=== PATIENT | male | born 1995 | race American Indian/Alaskan Native ===

== ENCOUNTER 2019-10-01 02:16 | Emergency (ER) | payer SELFPAY ==
[2019-10-01 02:35] VITALS: BP 111/76
[2019-10-01] MEDS ORDERED: predniSONE 20 MG TAB PO ONE (03:44)
[2019-10-01] MEDS ORDERED: IBUPROFEN 600 MG TAB PO ONE (03:44)
[2019-10-01] MEDS ORDERED: ACETAMINOPHEN 500 MG TAB PO ONE (03:44)
--- NOTE | 2019-10-01 04:10 | XRay Report ---
LEFT FOOT 3 VIEWS INDICATION / CLINICAL INFORMATION: Left foot pain/injury. COMPARISON: None available. FINDINGS: BONES and JOINT(S): No acute fracture or subluxation. No significant arthritis. SOFT TISSUES: No significant abnormality. ADDITIONAL FINDINGS: None. IMPRESSION: 1. No acute findings. Signer Name: Félix Stoner MD Signed: 10/01/2019 4:06 AM Workstation Name: [id number]
--- NOTE | 2019-10-01 04:28 | Emergency Department Report ---
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 Patient states that apart from playing basketball that he plays multiple times a day he does not get engage in any other physically straining activity. Patient states that the last time he played basketball was over 12 hours ago. Patient states that the pain in the left foot got worse in the last 6 hours such that he has not been able to sleep because of severe pain. Patient also states that the pain is worse with ambulation or active range of motion or palpation of the left foot. Patient denies fall, traumatic injury, heavy lifting, low back pain, fever, chills, numbness and tingling or weakness of left foot, chest pain or shortness of breath. MD Complaint: extremity pain (left plantar foot), joint paint (left plantar foot pain; painful left great toe on plantar side) -: Sudden, hour(s) (12) Location: left, lower extremity (left plantar foot), toe (left great toe) History of Same: No -: Yes arthralgia, No fever, No associated dyspnea, No associated chest pain Radiation: none Severity scale (0 -10): 5 Quality: aching, sharp, constant Consistency: constant Improves with: nothing Worsens with: weight bearing, walking, exertion, palpation Associated Symptoms: denies other symptoms, arthralgias. denies: chest pain, shortness of breath, myalgias, rash, other - Related Data Previous Rx's Medication Instructions Recorded Last Taken Type Naproxen 500 mg PO Q12H PRN #24 tablet 10/01/19 Unknown Rx predniSONE [Deltasone] 40 mg PO QDAY #10 tab 10/01/19 Unknown Rx Allergies Allergy/AdvReac Type Severity Reaction Status Date / Time guaifenesin [From Robitussin] Allergy Unknown Verified 10/01/19 02:32 ED Review of Systems ROS: Stated complaint: LT FOOT PAIN Other details as noted in HPI Constitutional: denies: chills, fever Eyes: denies: eye pain, eye discharge, vision change ENT: denies: ear pain, throat pain Respiratory: denies: cough, shortness of breath, wheezing Cardiovascular: denies: chest pain, palpitations Endocrine: no symptoms reported Gastrointestinal: denies: abdominal pain, nausea, diarrhea Genitourinary: denies: urgency, dysuria Musculoskeletal: arthralgia (Left foot pain), other (Left great toe pain). denies: back pain, joint swelling Skin: denies: rash, lesions Neurological: denies: headache, weakness, paresthesias Psychiatric: denies: anxiety, depression Hematological/Lymphatic: denies: easy bleeding, easy bruising ED Past Medical Hx - Past Medical History Previous Medical History?: No - Surgical History Past Surgical History?: No - Social History Smoking Status: Never Smoker Substance Use Type: None - Medications Home Medications: Home Medications Medication Instructions Recorded Confirmed Last Taken Type Naproxen 500 mg PO Q12H PRN #24 tablet 10/01/19 Unknown Rx predniSONE [Deltasone] 40 mg PO QDAY #10 tab 10/01/19 Unknown Rx ED Physical Exam - General Limitations: Physical Limitation General appearance: alert, in no apparent distress - Head Head exam: Present: atraumatic, normocephalic, normal inspection - Eye Eye exam: Present: normal appearance, PERRL, EOMI Pupils: Present: normal accommodation - ENT ENT exam: Present: normal exam, normal orophraynx, mucous membranes moist, TM's normal bilaterally, normal external ear exam - Neck Neck exam: Present: normal inspection, full ROM. Absent: tenderness, lymphadenopathy - Respiratory Respiratory exam: Present: normal lung sounds bilaterally. Absent: respiratory distress, wheezes, rales, rhonchi, chest wall tenderness, accessory muscle use, decreased breath sounds, prolonged expiratory - Cardiovascular Cardiovascular Exam: Present: regular rate, normal rhythm, normal heart sounds. Absent: systolic murmur, diastolic murmur, rubs, gallop - GI/Abdominal GI/Abdominal exam: Present: soft, normal bowel sounds. Absent: tenderness, guarding, rebound, hyperactive bowel sounds, hypoactive bowel sounds, organomegaly - Extremities Exam Extremities exam: Present: normal inspection, full ROM, tenderness (Palpable left plantar foot tenderness at the arch of the foot; palpable left great toe tenderness), normal capillary refill. Absent: pedal edema, joint swelling, calf tenderness - Back Exam Back exam: Present: normal inspection, full ROM. Absent: tenderness, CVA tenderness (R), muscle spasm - Neurological Exam Neurological exam: Present: alert, oriented X3, CN II-XII intact, normal gait, reflexes normal - Psychiatric Psychiatric exam: Present: normal affect, normal mood - Skin Skin exam: Present: warm, dry, intact, normal color. Absent: rash ED Course Vital Signs 10/01/19 02:19 Temperature 98.3 F Pulse Rate 64 Respiratory 18 Rate Blood Pressure 111/76 O2 Sat by Pulse 98 Oximetry ED Medical Decision Making - Radiology Data Radiology results: report reviewed, image reviewed Findings [facility] [address] [place] [address] XRay Report Signed Patient: AUGUSTIN EVANS MR#: [id number] : 1995 Acct:[id number] Age/Sex: 24 / M ADM Date: 10/01/19 Loc: ED Attending Dr: Ordering Physician: LILIA RM Date of Service: 10/01/19 Procedure(s): XR foot 3+V LT Accession Number(s): [id number] cc: LILIA RM Fluoro Time In Minutes: LEFT FOOT 3 VIEWS INDICATION / CLINICAL INFORMATION: Left foot pain/injury. COMPARISON: None available. FINDINGS: BONES and JOINT(S): No acute fracture or subluxation. No significant arthritis. SOFT TISSUES: No significant abnormality. ADDITIONAL FINDINGS: None. IMPRESSION: 1. No acute findings. 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 Patient states that apart from playing basketball that he plays multiple times a day he does not get engage in any other physically straining activity. Patient states that the last time he played basketball was over 12 hours ago. Patient states that the pain in the left foot got worse in the last 6 hours such that he has not been able to sleep because of severe pain. Patient also states that the pain is worse with ambulation or active range of motion or palpation of the left foot. In the ED, patient is alert and oriented x3 and is not in distress. Left foot x-ray shows no acute fracture or subluxation. Patient symptoms are likely due to muscle strain, tendinitis or plantar fasciitis. Patient was treated for pain in the ED and on reevaluation, patient's pain is well controlled with medications. Patient will discharge home on pain medication and was advised to follow-up with his primary care physician in 5 to 7 days for reevaluation. - Differential Diagnosis plantar fasciitis; tendonitis; muscle strain Critical care attestation.: If time is entered above; I have spent that time in minutes in the direct care of this critically ill patient, excluding procedure time. ED Disposition Clinical Impression: Plantar fasciitis of left foot, Tendinitis of left foot Disposition: DC- TO HOME OR SELFCARE Is pt being admited?: No Does the pt Need Aspirin: No Condition: Stable Instructions: Tendinitis (ED), Plantar Fasciitis (ED) Additional Instructions: Left foot x-ray shows no acute fractures or subluxations. Therefore your pain is due to muscle strain, tendon inflammation or plantar fasciitis. Therefore take pain medication as advised with food, drink plenty of fluids and follow-up with your primary care physician in 5 to 7 days for reevaluation. Return to the ED immediately if symptoms get worse. Prescriptions: predniSONE [Deltasone] 40 mg PO QDAY #10 tab Naproxen 500 mg PO Q12H PRN #24 tablet PRN Reason: Pain , Severe (7-10) Referrals: [facility] [Provider Group] - 3-[address] [facility] [Outside] - 3-5 Days BUD WHIPPLE MD [Staff Physician] - 3-5 Days Forms: Work/School Release Form(ED) Time of Disposition: 04:26 Print Language: MONGOLIAN
== END 2019-10-01 04:40 | disposition home or self-care (01) ==
LOC: ED 02:16
DX: M77.52 Other enthesopathy of left foot and ankle (principal); M72.2 Plantar fascial fibromatosis; Z79.899 Other long term (current) drug therapy; Z88.8 Allergy status to other drugs, medicaments and biological substances
CPT/HCPCS: 73630; 99283; J7512